=== PATIENT | male | born 1990 | race Caucasian/White ===

== ENCOUNTER 2018-12-03 11:00 | Outpatient (CLI) | payer MEDICAID, SELFPAY ==
--- NOTE | 2018-12-02 15:01 | DI.RAD_ITS ---
EXAM: XR WRIST RT COMPLETE INDICATION: WRIST PAIN. COMPARISON: No exams were available for comparison TECHNIQUE: 2D digital imaging was performed. FINDINGS: Three views were obtained. There is a suspected old fracture of the radial aspect of the distal pole of the navicular with a well corticated presumed fracture fragment. Otherwise bones of the carpus a re unremarkable and alignment is within normal limits. IMPRESSION:
== END 2018-12-03 11:20 ==
PROVIDERS: Visit Provider Student in an Organized Health Care Education/Training Program
DX: M25.531 Pain in right wrist (principal); Z87.81 Personal history of (healed) traumatic fracture
CPT/HCPCS: 73110

== ENCOUNTER 2019-03-16 01:34 | Outpatient (CLI) | payer BC, SELFPAY ==
--- NOTE | 2019-03-16 15:08 | DI.RAD_ITS ---
EXAM: XR SHOULDER RT 1V INDICATION: POST OP ENCOUNTER FOR ORTHOPEDIC AFTERCARE POSTOP, Z47.89, INSTABILITY RT SHOULDER, M25. 311. COMPARISON: No previous for comparison. TECHNIQUE: 2D digital imaging was performed. FINDINGS: Alignment of the shoulder appears within normal limits on this single axillary view. There are 2 ort hopedic screws seen overlying the region of the glenoid. The soft tissues are unremarkable. This is a limited examination of the right shoulder.
== END 2019-03-16 01:54 ==
PROVIDERS: Visit Provider Orthopaedic Surgery Sports Medicine
DX: M25.311 Other instability, right shoulder (principal); Z47.89 Encounter for other orthopedic aftercare
CPT/HCPCS: 73020

== ENCOUNTER 2019-04-27 14:41 | Outpatient (CLI) | payer BC, SELFPAY ==
--- NOTE | 2019-04-27 | DI.RAD_ITS ---
EXAM: XR SHOULDER RT 1V CLINICAL HISTORY: POSTOP SHOULDER LATERJET-RT SHOULDER JOINT TECHNIQUE: COMPARISON: XR WRIST RT COMPLETE from 12/02/2018 XR SHOULDER RT 1V from 03/16/2019 FINDINGS: Single axillary view was obtained. Previously noted fixation screws again noted superimposed over th e glenoid. Glenohumeral relationship appears intact. No change from films obtained March 16. IMPRESSION:
== END 2019-04-27 15:01 ==
PROVIDERS: Visit Provider Orthopaedic Surgery Sports Medicine
DX: Z98.890 Other specified postprocedural states (principal); M25.311 Other instability, right shoulder
CPT/HCPCS: 73020